=== PATIENT | male | born 1945 | race Caucasian/White ===

== ENCOUNTER 2017-06-16 09:15 | Emergency (ER) | payer OTHER ==
[~2017-06-16] VITALS: Ht 185.4 cm; Wt 95.5 kg
[2017-06-16 09:25] VITALS: PULSE 61; RESP 18; O2SAT 95
--- NOTE | 2017-06-16 09:31 | ED.REPORT ---
HPI- Male Date of Service Jun 16, 2017 ED Provider: Tony Oliva DO The pt is a y/o male presenting to the ED complaining of an inability to urinate. The pt has not urinated for the last nine hours and this is the first time this has happened. He also reports decreased urination at night which usually gets better during the day. The pt is pretty sure he is taking Flomax daily. Denies fevers, chills, dysuria, leg numbness or weakness, or incontinence. Nursing Notes Stated Complaint: UNABLE TO URINATE Chief Complaint: Unable to urinate Allergies: Coded Allergies: No Known Allergies (Unverified , 06/16/17) General Time Seen by MD: 09:30 Chief Complaint Unable to urinate Hx Obtained From: Patient Arrived By: Walk-in Onset Occurred: 9 - 12 hours ago Symptom Duration: Since onset Recent Healthcare: No recent doctor visit, No recent hospitalization Similar Sx Previous: No Past Medical History Past Medical History None reported Past Surgical History None reported Smoking History Never Smoker Social History Alcohol Use: "Social" Ambulatory Status Independent Review of Systems Unable to urinate; Denies lower extremity numbness or weakness; Constitutional: Denies: Chills, Fever Male: Denies Dysuria, Denies Incontinence Complete sys rev & neg: except as marked. Physical Exam Initial Vital Signs Vital Signs (First) Date Time Temp Pulse Resp B/P Pulse Ox O2 Delivery O2 Flow Rate FiO2 06/16/17 09:25 36.3 61 18 95 Room Air 06/16/17 10:15 143/71 Initial VS: Reviewed General/Constitutional: Well-developed, Well-nourished Head / Eyes: Atraumatic, Normocephalic, PERRL ENT: Mucous membranes moist, Conjunctiva normal, No scleral icterus Neck: Supple, Non-tender, Full range of motion Respiratory: Breath sounds normal, Clear to auscultation, No respiratory distress Cardiovascular: Regular rate & rhythm, Heart sounds normal, Intact distal pulses Extremities: Vascular intact, Neuro intact, No swelling, No tenderness Skin: Warm, Dry, No cyanosis Neurologic: Alert, Oriented, Nonfocal Psychiatric: Mood/affect normal, Behavior normal, Normal thought content Male Genitourinary: Patient refused exam Verdugo catheter in place Re-Eval/Medical Decision Med Decision/Clinical Course Urinary retention likely due to BPH. No evidence of UTI, after recurrent discussions with the patient he is sure that he wants his Verdugo catheter removed today despite our discussion that he will likely be back in 8-12 hours. Return and follow-up precautions given. Urology follow-up recommended Source of Hx: Old records Re-Evaluation/Progress : Time of Eval: 09:51 Re-Evaluation/Progress Note: Informed the pt of the risks of removing the catheter and recommended that he keeps it in and following up w/ an urologist. patient wishes to have verdugo removed Counseled Regarding: Diagnosis, Lab results, Need for follow-up, When/why to return to ED Discharge & Departure Impression: Primary Impression: Urinary retention due to benign prostatic hyperplasia Disposition: Home Discharge Condition All VS Reviewed: Yes Condition: Stable Additional Instructions: Continue taking your prostate medications. Call a urologist today for a close follow-up. Return to the ER as needed for recurrent inability to urinate or other concerns Referrals: Cee Truong Scribe Attestation Portions of this note were transcribed by Ankit Delvalle. I, Dr. Oliva personally performed the history, physical exam and medical decision-making; I reviewed and confirmed the accuracy of the information in the transcribed note. copies to: Cee Truong Timothy S DO Jun 16, 2017 09:31 Ankit Delvalle Jun 16, 2017 09:53
[2017-06-16 10:15] VITALS: BP 143/71
== END 2017-06-16 10:44 | disposition home or self-care (01) ==
LOC: SED 09:15
DX: N40.1 Benign prostatic hyperplasia with lower urinary tract symptoms (principal); R33.8 Other retention of urine